=== PATIENT | male | born 1980 | race Caucasian/White ===

== ENCOUNTER 2024-09-15 17:15 | Emergency (ER) | payer OTHER, SELFPAY ==
[2024-09-15 17:20] VITALS: BP 130/68; PULSE 69; TEMP 36.7; O2SAT 100; BMI 23.5
== END 2024-09-15 17:55 | disposition left against medical advice (07) ==
PROVIDERS: Emergency Provider Emergency Medicine
DX: Z53.21 Procedure and treatment not carried out due to patient leaving prior to being seen by health care provider (principal)